=== PATIENT | female | born 1950 | race Caucasian/White ===

== ENCOUNTER 2017-12-04 08:28 | Day surgery (SDC) | payer OTHER ==
[~2017-12-04] VITALS: Ht 154.9 cm; Wt 103.0 kg
[~2017-12-04 08:28] MED LIST: ASCORBIC ACID250 MG PO; CALTRATE 600 +1 EAC2 PO; CENTRUM SILVER1 EAC4 PO; CINNAMON BARK500 MG PO; LISINOPRIL-HCT1 EAC3 PO; MELOXICAM15 MG PO; METOPROLOL TART25 MG PO; OMEGA 3-6-9 CO400 MG PO; SIMVASTATIN20 MG PO; TYLENOL ARTHRI650 MG PO; VITAMIN E400 UNIT PO
[2017-12-04] MEDS ORDERED: ASPIRIN325 MG PO (09:15)
== END 2017-12-04 16:10 | disposition home or self-care (01) ==
LOC: CATH 08:28
DX: R07.89 Other chest pain (principal); R06.02 Shortness of breath; I49.9 Cardiac arrhythmia, unspecified; E66.9 Obesity, unspecified; Z68.41 Body mass index [BMI] 40.0-44.9, adult; I10 Essential (primary) hypertension; E78.4 Other hyperlipidemia; Z79.82 Long term (current) use of aspirin
CPT/HCPCS: 93005; C1769; C1887; J1200; J1644; J2250; J7040